=== PATIENT | male | born 1955 | race Caucasian/White ===

== ENCOUNTER → 2019-09-25 08:52 | Outpatient (CLI) | payer OTHER, SELFPAY ==
--- NOTE | 2019-09-25 08:56 | DI.RAD.S_ITS ---
PROCEDURE: FL BARIUM SWALLOW W SPEECH INDICATIONS: Change in swallowing mechanics, question about aspiration TECHNIQUE: Examination was conducted in conjunction with speech pathology per standard protocol. In the lateral projection, filming was performed of the patient swallowing. AP projection filming may also be performed with patient swallowing. COMPARISON: None. FINDINGS: Function: The oral preparatory phase appears normal, with proper containment. The subsequent oral propulsive phase, pharyngeal phase, and esophageal phase of swallowing also appear normal with all proffered substances. No laryngotracheal penetration or aspiration. Moderate amount of residue building at the level of the vallecula is seen. Morphology: No cricopharyngeal bar is identified. No cervical esophageal webs. No Zenker's diverticulum. No strictures. IMPRESSION: Moderate amount of residue at the level of vallecula. No aspiration or penetration is seen. Please refer to speech pathology notes. Dictated by: Lawson James M.D. on 09/25/2019 at 10:10 Approved by: Lawson James M.D. on 09/25/2019 at 10:11
--- NOTE | 2019-09-25 14:02 | ST.SWALLOW ---
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 He reports feeling as if things are going down the wrong way. He is being worked up for GERD . Subjective Observations Alert, oriented and followed direction appropriately. Patient Positioning Position View Lateral Imaging Lateral View Textures Administered Trials Presented Thin Liquid via Spoon,Thin Liquid via Cup,[place] Liquid via Spoon,[place] Liquid via Cup,Honey Liquid via Spoon, Dysphagia Blenderized Textures ,Regular Textures Oral Phase Source: MBSIMP (TM) (C) Bolus Specific Scoring Grid Lip Closure No Impairment (WNL) Tongue Control During Bolus Hold No Impairment (WNL) Bolus Prep/Mastication No Impairment (WNL) Bolus Transport/Lingual Motion No Impairment (WNL) Oral Residue Minimal Impairment Additional Oral Phase Observations Required multiple swallows to clear oral cavity of residue collection on oral structures. Pharyngeal Phase Source: MBSIMP (TM) (C) Bolus Specific Scoring Grid Delayed Initiation of Pharyngeal Swallow No Soft Palate Elevation No Impairment (WNL) Tongue Base Strength/Range of Motion No Impairment (WNL) Laryngeal Elevation Minimal Impairment Anterior Hyoid Movement No Impairment (WNL) Epiglottic Range of Motion No Impairment (WNL) Vallecular Residue Yes Laryngeal Vestibular Closure No Impairment (WNL) Pharyngeal Stripping Wave No Impairment (WNL) Upper Esophageal Sphincter Opening Minimal Impairment Residue in the Pyriform Sinuses Yes Additional Pharyngeal Phase Observations Epiglottis appears to only invert partially resulting in vallecular residue with all trials. Laryngeal vestibular closure is complete with no episodes of penetration or aspiration observed during the study. There is partial duration of the pharyngoesophageal segment opening resulting in pyriform sinus residue. Distension appeared complete with no obstruction of bolus flow. The collection of residue in the vallecula and pyriform sinuses as well as a trace amount of residue on the aryepiglottic folds with all consistencies triggered patient to take additional swallows which eventually cleared completely. A chin tuck was trialed but was not successful in eliminating pharyngeal residue. A/P View Clinical Impressions Findings Patient presents with mild pharyngeal dysphagia characterized by a collection of pharyngeal residue with all consistencies trialed. Patient was instructed to take small bites/sips when eating and drinking and implement additional dry swallows to clear residue. He verbalized understanding. No penetration or aspiration were observed and overall, patient's swallow appears functional for his age. Patient Appropriate for Therapy No Recommendations Diet Liquids Order Thin Diet Order Regular Medication Recommendation As Tolerated Additional Dietary Needs Single Sips Aspiration Precautions Recommended Precautions Small Bites/Sips,Double Swallow Treatment Plan Recommended Referrals Primary Care Physician Additional Recommended Referrals Consider barium swallow to assess esophageal function/ GERD Placement Recommendation After Discharge Home
== END ==
PROVIDERS: PCP Family Medicine; Visit Provider Family Medicine
DX: K21.0 Gastro-esophageal reflux disease with esophagitis (principal)
CPT/HCPCS: 74230; 92611

== ENCOUNTER 2019-11-03 09:04 | Outpatient (RCR) | payer OTHER, SELFPAY ==
--- NOTE | 2019-11-03 15:37 | ST.IPDYTX ---
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 He was alert, oriented and cooperative. Treatment Treatment Activities Patient was seen for follow-up from Modified Barium Swallow Study completed 09/25/19. Results of MBS indicate mild pharyngeal dysphagia characterized by a collection of pharyngeal residue with all consistencies. MBS video was reviewed with patient and verbal education was provided regarding normal swallow anatomy and physiology and presence of pharyngeal residue as well as potential impact including increased risk of aspiration due to residue coating aryepiglottic folds in between swallows. Patient was educated on use of the following compensatory strategies: small bites/sips, additional dry swallows to clear residue. Patient reports his symptoms of burning sensation in his chest have stopped since beginning Omeprazole as prescribed by his PCP. Written education was provided regarding GERD vs. LPR and dietary.lifestyle modifications for reducing GERD. Assessment Patient Response to Treatment Excellent Rehab Potential Excellent Assessment of Improvement Patient presents with a functional aging swallow and his symptoms which initially prompted referral for MBS were likely related to reflux vs. dysphagia. He verbalized understanding of aspiration precautions. I recommended he continue to follow-up with his PCP for management of his reflux. No further speech therapy recommended unless patient's condition worsens. Diet Recommendations Recommendations Continue Current Diet Liquids Order Thin Diet Order Regular Medication Recommendations As Tolerated Aspiration Precautions Recommended Precautions Upright at 90 Degrees,Frequent Rest Periods,Small Bites/Sips ,Double Swallow Treatment Plan Placement Recommendation after Discharge Home Appropriate for Continued Therapy No Therapy Recommendations Follow-up with PCP for ongoing management of GERD. Return for speech therapy if symptoms of dysphagia worsen or there is increased concern for aspiration.
== END 2020-03-17 09:16 ==
LOC: SP 09:04
PROVIDERS: PCP Family Medicine; Referring Provider Family Medicine; Visit Provider Family Medicine
DX: K21.0 Gastro-esophageal reflux disease with esophagitis (principal)
CPT/HCPCS: 92526

== ENCOUNTER 2019-11-27 08:49 | Day surgery (SDC) | payer OTHER, SELFPAY ==
[2019-11-27] VITALS (7 sets, daily range): BP systolic 129–152; BP diastolic 70–84; PULSE 61–70; RESP 13–18; TEMP 36.3–37.1; O2SAT 95–98; BMI 25.0
--- NOTE | 2019-11-27 | PATH_ITS ---
[facility] Accession Number: [id number] . 01 Material submitted: . PART A: duodenum bulb - DUODENAL BULB BIOPSY PART B: gastrointestinal site - GASTRIC MUCOSA BIOPSY PART C: esophagus - DISTAL ESOPHAGUS BIOPSY PART D: esophagus - ESOPHAGEAL BIOPSY . 02 Diagnosis: A. Duodenum, Bulb, Biopsy: Duodenal mucosa with no diagnostic abnormality. Negative for active inflammation, features of sprue, dysplasia, or malignancy. . B. Stomach, Biopsy: Antral mucosa with mild chronic gastritis. Negative for Helicobacter by immunohistochemistry. Negative for intestinal metaplasia. Negative for dysplasia and malignancy. . C. Distal Esophagus, Biopsy: Squamocolumnar junctional mucosa with specialized intestinal metaplasia, consistent with Nichols's esophagus. Negative for dysplasia and malignancy. . D. Esophagus, Biopsy: Squamous epithelium with no diagnostic abnormality. Intraepithelial eosinophils are not increased. Negative for dysplasia and malignancy. [facility] 12/01/2019 1523 Local . 02 Electronically signed: . Miryam Jain MD, Pathologist NPI- [id number] . 01 Gross description: . Part A: DUODENAL BULB BIOPSY: Received in formalin is 1 fragment(s) of toscano, soft tissue measuring 0.3 x 0.2 x 0.1 cm submitted entirely in 1 cassette(s) Part B: GASTRIC MUCOSA BIOPSY: Received in formalin is 1 fragment(s) of toscano, soft tissue measuring 0.3 x 0.2 x 0.1 cm submitted entirely in 1 cassette(s) Part C: DISTAL ESOPHAGUS BIOPSY: Received in formalin are 2 fragment(s) of toscano, soft tissue measuring 0.2 x 0.2 x 0.1 cm to 0.2 x 0.1 x 0.1 cm submitted entirely in 1 cassette(s) Part D: ESOPHAGEAL BIOPSY: Received in formalin is 1 fragment(s) of toscano, soft tissue measuring 0.3 x 0.3 x 0.1 cm submitted entirely in 1 cassette(s) /Q 11/27/2019 2354 Local . 02 Microscopic: . B. An immunohistochemical stain was performed to evaluate for Helicobacter organisms and is negative. The control stain showed appropriate reactivity. . * This test was developed and its performance characteristics determined by [facility]. It has not been cleared or approved by the U.S. Food and Drug Administration. The FDA has determined that such clearance or approval is not necessary. This test is used for clinical purposes. It should not be regarded as investigational or for research. . 02 Pathologist provided ICD-10: K21.9 . 02 CPT . 552167, 454865, 681492, 425316, T96127 Performed at: 01 [facility] [address] [id number] MD Niall Hillman MD Phone: [phone] Performed at: 02 [facility] [address] [place] [id number] MD Miryam Jain MD Phone: [phone]
[2019-11-27] MEDS: SODIUM CHLORIDE 0.9% 1,000 ML 200 ML IV (09:05)
--- NOTE | 2019-11-27 09:35 | PM.OP.ENDO ---
Operative Date/Time/Diagnoses Date of procedure: 11/27/19 Time of procedure: 09:35 Pre-op diagnosis: Acid reflux symptoms Post-op diagnosis: other (7 cm of Nichols's esophagus, endoscopic gastritis with stigmata of recent bleeding, mild endoscopic duodenitis) Procedure & Clinicians Study performed: Esophagogastroduodenoscopy with cold forceps biopsies of duodenal bulb, gastric mucosa, distal esophagus, mid esophagus Same procedure as scheduled: Yes Indications: Acid reflux symptoms Surgeon: Martha Ashford Procedure Notes SCOAP/Timeout: Performed Procedure in detail: The patient was brought to the room and placed in left lateral decubitus position with all bony prominences padded. A time-out was performed and then the patient was given procedural sedation starting with [4] mg of Versed and [100] mcg of fentanyl. A total of 8 mg of Versed and 100 micro g of fentanyl were given for the entire procedure. Vitals were monitored throughout the procedure and remained stable. Once adequately sedated the procedure was begun. A bite block was placed in the patient's mouth to protect his lips, teeth, and tongue. The gastroscope was then passed through the bite block, across the tongue and down into the esophagus without incident. A tubular view of the esophagus was maintained as I advanced the scope down the esophagus into the stomach. I then advanced through the pylorus and into the duodenum. I then flexed the scope into the 2nd part of the duodenum. The duodenum appeared normal, with a small amount of bile present. The duodenal bulb appeared slightly inflamed. This was biopsied. Above retracted back into the stomach, where I saw multiple shallow healing ulcerations, and some erythematous mucosa, consistent with erosive gastritis. Biopsies were taken of the gastric mucosa. I then retroflexed and looked up at the hiatus. There was a Hill grade 2 hiatal hernia, which was very small. I then straightened the scope retracted back into the esophagus where I saw a long tongue of salmon-colored mucosa extending up into the distal esophagus. This was about 7 cm in length. The Z-line had several additional breaks in it, but no other long tongues of salmon mucosa. Biopsies were taken of the distal esophagus. I then retracted the scope further out into the midesophagus, and took biopsies there. The scope was then withdrawn from the patient. He tolerated the procedure well. He was transferred to the PACU in stable condition. Sedation minutes: 15 Findings: Nichols's esophagus (7 cm), gastritis and hiatal hernia (Small, Hill grade 2) Specimen(s): other (Cold forceps biopsies of duodenal bulb, gastric mucosa, distal esophagus, mid esophagus) Complications: none Impression: Nichols's esophagus, erosive gastritis, low-grade duodenitis Post-procedure Recommendations: No ASA/NSAIDS, EGD in 1 year (Will depend on biopsy results) and Other recommendation (Use double-dose omeprazole, and anti-reflux diet. Will likely need surveillance EGD for Nichols's esophagus in 1 year, depending on biopsy results.) Plan for aftercare: Increase to double-dose PPI, use low acid/anti-reflux diet. Schedule for follow-up EGD in 1 year Will contact patient with biopsy results Disposition: PACU
--- NOTE | 2019-11-27 09:35 | PM.PREOP ---
Pre-operative Note Interval Note History & Physical reviewed/Exam performed by Physician: Yes Changes to H&P: No ASA Class (for procedural sedation): II
[2019-11-27] MEDS: MIDAZOLAM 5 MG/5 ML VIAL IV (09:37)
[2019-11-27] MEDS: fentaNYL 250 MCG/5 ML INJ IV (09:38)
[2019-11-27] MEDS: LIDOCAINE 4% SOLN 50 ML 20 ML TOP (09:39)
[2019-11-27] MEDS: MIDAZOLAM 2 MG/2 ML VIAL IV ×2 (09:46→09:54)
--- NOTE | 2019-11-27 10:44 | SUR.PHASEII ---
1035 states that he feel ready to go, awake, oriented, denies lightheadedness. Tolerating water well. 1040 Ambulated to the bathroom, stable on feet. Void qs.
== END 2019-11-27 10:45 | disposition home or self-care (01) ==
PROVIDERS: PCP Family Medicine; Referring Provider Surgery; Visit Provider Surgery
PROC: 0DJ08ZZ Inspection of Upper Intestinal Tract, Via Natural or Artificial Opening Endoscopic (ICD-10-PCS; CPT 43235; principal; 2019-11-27 10:00)
DX: K29.50 Unspecified chronic gastritis without bleeding (principal); K21.9 Gastro-esophageal reflux disease without esophagitis; K22.70 Barrett's esophagus without dysplasia; K29.80 Duodenitis without bleeding; K44.9 Diaphragmatic hernia without obstruction or gangrene
CPT/HCPCS: 43239; 99152; J2250; J3010

== ENCOUNTER → 2020-05-20 08:17 | Outpatient (CLI) | payer OTHER, SELFPAY ==
[2020-05-20 08:45] LABS: Add Manual Diff / Slide Review NO; Basophils Absolute Auto 100 /uL (0-100); Basophils Percent Auto 1.3 % (0-2); Eosinophils Absolute Auto 200 /uL (0-450); Hematocrit 45.5 % (41-53); Hemoglobin 15.5 g/dL (13.5-17.5); Lymphocytes Absolute Auto 2500 /uL (1100-4500); Lymphocytes Percent Auto 31.2 % (25-40); Mean Corpuscular Hemoglobin 31.8 PG (26-34); Mean Corpuscular Volume 93.5 fL (80-100); Monocytes Absolute Auto 800 /uL (0-900); Neutrophils Absolute Auto 4300 /uL (1500-7000); Neutrophils Percent Auto 54.5 % (50-75); Platelet Count 241 X10^3/uL (150-400); Red Blood Cell Count 4.87 X10^6/uL (4.5-5.9); Red Cell Distribution Width 13.6 % (11.6-14.8)
[2020-05-20 09:04] LABS: Alanine Aminotransferase 25 IU/L (<50); Albumin 4.5 g/dL (3.5-5.0); Albumin Globulin Ratio 1.6 (1.0-2.8); Alkaline Phosphatase 73 U/L (38-126); Aspartate Aminotransferase 39 IU/L (17-59); BUN Creatinine Ratio 11.1 (6-22); Blood Urea Nitrogen 8 mg/dL (9-20); Calcium 9.8 mg/dL (8.4-10.2); Carbon Dioxide 25 mmol/L (22-32); Chloride 100 mmol/L (98-107); Cholesterol 179 mg/dL (140-199); Estimated Glomerular Filt Rate > 60.0 mL/min (>60); Globulin 2.9 g/dL (1.7-4.1); Glucose 74 mg/dL (80-110); HDL Cholesterol 64 mg/dL (40-60); HEMOLYSIS < 15 (0-50); LDL Cholesterol Calculated 97 mg/dL (<100); Potassium 4.6 mmol/L (3.4-5.1); Sodium 135 mmol/L (137-145); Total Protein 7.4 g/dL (6.3-8.2); Triglycerides 88 mg/dL (35-150)
[2020-05-20 09:32] LABS: Prostate Specific Antigen Scrn 2.61 ng/mL (0.1-4.0)
== END ==
PROVIDERS: PCP Family Medicine; Referring Provider Family Medicine; Visit Provider Family Medicine
DX: Z00.00 Encounter for general adult medical examination without abnormal findings (principal); Z12.5 Encounter for screening for malignant neoplasm of prostate; Z13.1 Encounter for screening for diabetes mellitus; Z13.220 Encounter for screening for lipoid disorders; Z13.228 Encounter for screening for other metabolic disorders
CPT/HCPCS: 36415; 80053; 80061; 85025; G0103

== ENCOUNTER → 2020-06-17 09:13 | Outpatient (CLI) | payer OTHER, SELFPAY ==
[2020-06-20 07:40] LABS: Fecal Immunochemical Test Negative (Negative)
== END ==
PROVIDERS: PCP Family Medicine; Referring Provider Family Medicine; Visit Provider Family Medicine
DX: Z12.11 Encounter for screening for malignant neoplasm of colon (principal)
CPT/HCPCS: 82274

== ENCOUNTER 2021-12-07 13:35 | Emergency (ER) | payer MEDICARE, SELFPAY ==
--- NOTE | 2021-12-07 13:44 | DI.RAD.S_ITS ---
PROCEDURE: XR ELBOW RT MIN 3V INDICATIONS: swelling, pain, tingling TECHNIQUE: 3 views of the elbow were acquired. COMPARISON: None. FINDINGS: Bones: No acute fractures or dislocations. No suspicious bony lesions. Soft tissues: No elbow joint effusion. No suspicious soft tissue calcifications. IMPRESSION: No acute osseous abnormality. If clinical suspicion and/or symptoms persist, additional imaging with repeat plain films, or advanced imaging (e.g. CT, MRI) may be helpful for further assessment. Dictated by: Eddie Orona M.D. on 12/07/2021 at 13:22 Approved by: Eddie Orona M.D. on 12/07/2021 at 13:23
[2021-12-07 13:45] VITALS: BP 181/85; PULSE 77; RESP 16; TEMP 36.7; O2SAT 98; BMI 25.0
--- NOTE | 2021-12-07 14:45 | ED.UPPEXIN ---
HPI - Extremity Injury (Upper) <JEANNETTE De La Paz - Last Filed: 12/07/21 15:23> General Chief Complaint: Extremity Injury, Upper Stated Complaint: Potential dislocated elbow Time Seen by Provider: 12/07/21 14:24 Source: patient Mode of arrival: Ambulatory History of Present Illness HPI narrative: 66-year-old male smoker presents to the emergency department complaining of right elbow pain for approximately 1 week and worst pain which started last night with tenderness to palpation and limited range of motion. Patient denies any repetitive motion hobbies or overuse recently. Patient states he is retired. He denies any fever, skin infection, he states he has a history of shingles but this was on his back last year. Patient denies any known injury, states that it feels like it is swollen. He is unable to fully extend his right elbow. He denies any redness but endorses tenderness to touch, and mild swelling. Related Data Home Medications Medication Instructions Recorded Confirmed aluminum-mag hydroxide-simethicone 5 ml PO ONCE 10/29/19 08/17/20 200 mg-200 mg-20 mg/5 mL oral susp Previous Rx's Medication Instructions Recorded omeprazole 20 mg capsule,delayed 20 mg PO BID #60 cap 11/27/19 release cephalexin 500 mg capsule 500 mg PO QID #28 cap 08/17/20 hydrocodone 5 mg-acetaminophen 325 1 tab PO BID PRN #10 tab 12/07/21 mg tablet meloxicam 7.5 mg tablet 7.5 mg PO DAILY PRN #14 tab 12/07/21 prednisone 50 mg tablet 50 mg PO DAILY #5 tab 12/07/21 tramadol 50 mg tablet 50 mg PO BID PRN #10 tab 12/07/21 Allergies Allergy/AdvReac Type Severity Reaction Status Date / Time No Known Drug Allergies Allergy Verified 08/17/20 14:45 Review of Systems <JEANNETTE De La Paz - Last Filed: 12/07/21 15:23> Review of Systems Narrative: General: denies fever, chills, malaise, sweats, fatigue Head/Neck: denies headache, neck pain, dizziness Eyes: denies visual changes, eye pain Cardio: denies chest pain, palpitations, edema Respiratory: denies dyspnea, cough, orthopnea GI: denies abdominal pain, nausea, vomiting, or diarrhea : denies dysuria, hematuria, urinary retention, frequency or incontinence MSK: Endorses right elbow pain with mild swelling, denies any weakness Skin: denies rash, itching, skin lesions or other Neuro: denies numbness, tingling Patient History <JEANNETTE De La Paz - Last Filed: 12/07/21 15:23> Medical History Nichols's esophagus Chronic neck pain Hearing loss (~1999) Reflux esophagitis Segmental and somatic dysfunction of abdomen and other regions Segmental and somatic dysfunction of cervical region Shoulder pain (~2002) Skin abscess Somatic dysfunction of rib cage region Vision disorder Surgical History Anesthesia History of bladder surgery (~2018) History of knee surgery (~1993) History of open heart surgery (~1967) History of shoulder surgery (~2003) Social History household members: other Smoking Status: Current every day smoker alcohol intake: current Smoking Status: Current every day smoker tobacco type: cigarettes alcohol intake frequency: a few times a week Substance Use Type: does not use and other Exam <JEANNETTE De La Paz - Last Filed: 12/07/21 15:23> Narrative Exam Narrative: Independently reviewed vitals signs and nursing notes. General: cooperative, comfortable, in no acute distress, well developed and well groomed Head: atraumatic, symmetrical facial expressions Neck: supple, atraumatic, without lymphadenopathy. Eyes: pupils equal round and reactive, EOMI, conjunctiva normal Nose: nares patent, no rhinorrhea Mouth/Throat: uvula midline, moist mucus membranes Cardiovascular: regular rate and rhythm, no peripheral edema, warm extremities Respiratory: normal effort, able to speak in complete sentences, no audible wheezing, stridor, or rales. No retractions or tachypnea. MSK: moves all extremities, ambulatory w/steady gait, neurovascularly intact, no weakness, right elbow with mild edema, no erythema, no ecchymosis, tenderness over Skin: brisk capillary refill, no rash, no erythema Neuro: normal speech and cognition, A&O x3, normal tone Psych: mental status is grossly normal, congruent mood, normal affect, pleasant and cooperative Initial Vital Signs Initial Vital Signs: Vital Signs Temperature 98.0 F 12/07/21 13:45 Pulse Rate 77 12/07/21 13:45 Respiratory Rate 16 12/07/21 13:45 Blood Pressure 181/85 H 12/07/21 13:45 Pulse Oximetry 98 12/07/21 13:45 <Gianna Beltran DO - Last Filed: 12/07/21 19:18> Initial Vital Signs Initial Vital Signs: Vital Signs Temperature 98.0 F 12/07/21 13:45 Pulse Rate 77 12/07/21 13:45 Respiratory Rate 16 12/07/21 13:45 Blood Pressure 181/85 H 12/07/21 13:45 Pulse Oximetry 98 12/07/21 13:45 Course <JEANNETTE De La Paz - Last Filed: 12/07/21 15:23> Orders Ordered: ED Orders 12/07/21 13:44 XR elbow RT min 3V Stat Discontinued Medications Hydrocodone Bitart/Acetaminophen (Hydrocodone/Acet 5/325 Tablet) 1 tab PO NOW ONE Stop: 12/07/21 14:41 Last Admin: 12/07/21 15:18 Dose: 1 tab Documented by: CAROL Ketorolac Tromethamine (Ketorolac 30 Mg/Ml Vial) 15 mg IM NOW ONE Stop: 12/07/21 14:40 Last Admin: 12/07/21 15:18 Dose: 15 mg Documented by: CAROL Lidocaine (Lidocaine Patch 1 Each Adh..Patch) 1 each TOP NOW ONE Stop: 12/07/21 14:40 Last Admin: 12/07/21 15:18 Dose: 1 each Documented by: CAROL Pantoprazole Sodium (Pantoprazole Dr 20 Mg Tablet) 20 mg PO NOW ONE Stop: 12/07/21 14:40 Last Admin: 12/07/21 15:18 Dose: 20 mg Documented by: CAROL Prednisone (Prednisone 20 Mg Tablet) 50 mg PO NOW ONE Stop: 12/07/21 14:40 Last Admin: 12/07/21 15:18 Dose: 50 mg Documented by: CAROL Vital Signs Vital signs: Vital Signs - 8 hr 12/07/21 13:45 12/07/21 15:26 Temperature 98.0 F Pulse Rate 77 70 Respiratory Rate 16 16 Blood Pressure 181/85 H 165/75 H Pulse Oximetry 98 99 <Gianna Beltran DO - Last Filed: 12/07/21 19:18> Orders Ordered: ED Orders 12/07/21 13:44 XR elbow RT min 3V Stat Discontinued Medications Hydrocodone Bitart/Acetaminophen (Hydrocodone/Acet 5/325 Tablet) 1 tab PO NOW ONE Stop: 12/07/21 14:41 Last Admin: 12/07/21 15:18 Dose: 1 tab Documented by: CAROL Ketorolac Tromethamine (Ketorolac 30 Mg/Ml Vial) 15 mg IM NOW ONE Stop: 12/07/21 14:40 Last Admin: 12/07/21 15:18 Dose: 15 mg Documented by: CAROL Lidocaine (Lidocaine Patch 1 Each Adh..Patch) 1 each TOP NOW ONE Stop: 12/07/21 14:40 Last Admin: 12/07/21 15:18 Dose: 1 each Documented by: CAROL Pantoprazole Sodium (Pantoprazole Dr 20 Mg Tablet) 20 mg PO NOW ONE Stop: 12/07/21 14:40 Last Admin: 12/07/21 15:18 Dose: 20 mg Documented by: CAROL Prednisone (Prednisone 20 Mg Tablet) 50 mg PO NOW ONE Stop: 12/07/21 14:40 Last Admin: 12/07/21 15:18 Dose: 50 mg Documented by: CAROL Vital Signs Vital signs: Vital Signs - 8 hr 12/07/21 13:45 12/07/21 15:26 Temperature 98.0 F Pulse Rate 77 70 Respiratory Rate 16 16 Blood Pressure 181/85 H 165/75 H Pulse Oximetry 98 99 MDM - Extremity Injury (Upper) <JEANNETTE De La Paz - Last Filed: 12/07/21 15:23> Imaging Data Extremity x-ray #1: Radiologist's Impression: PROCEDURE:? XR ELBOW RT MIN 3V ? INDICATIONS:? swelling, pain, tingling ? TECHNIQUE:? 3 views of the elbow were acquired.? ? COMPARISON:? None. ? FINDINGS:? ? Bones:? No acute fractures or dislocations.? No suspicious bony lesions.? ? Soft tissues:? No elbow joint effusion.? No suspicious soft tissue calcifications.? ? IMPRESSION:? No acute osseous abnormality.? If clinical suspicion and/or symptoms persist, additional imaging with repeat plain films, or advanced imaging (e.g. CT, MRI) may be helpful for further assessment. ? ? Dictated by: Eddie Orona M.D. on 12/07/2021 at 13:22 ? ? Approved by: Eddie Orona M.D. on 12/07/2021 at 13:23 ? MDM Narrative Medical decision making narrative: 66-year-old male presents to the emergency department complaining of right elbow pain which started he thinks a week ago when he was sleeping. He states it worsened last night, he is unable to fully extend his right elbow, it has tenderness over the lateral epicondyle. Patient does not have any history of gout, he is not on any blood thinners, he denies any known injury, he does not have any signs of infection including warmth, erythema, fluctuance, or rash. This is most likely tendinitis. Opted to treat patient with prednisone, meloxicam, tramadol, and hydrocodone as needed for his pain. He was given Toradol, hydrocodone and prednisone with Pepcid in the emergency department. Patient was also given a lidocaine patch. Encouraged light sling immobilization at a position of comfort. Ice, rest, follow-up with orthopedics. Patient understands to return to the emergency department for any worsening, fever, erythema, swelling, or any worsening range of motion. Differential diagnosis include lateral epicondylitis, tendinopathy, arthritis, flexor tenosynovitis, bursitis, gout, cellulitis, septic joint. Patient is appropriate and amenable to discharge home. Vital signs are stable on repeat examination is unremarkable. Patient has been informed of results. Patient has been given strict return to ER precautions for any new or worsening symptoms. Patient understands to follow up closely with outpatient providers as instructed. Patient understands plan and agrees to discharge home. All questions and concerns answered at this time. Discharge Plan Departure Patient Disposition: Home Clinical Impression: Elbow tendonitis Instructions: DI for Tendinitis, DI for Lateral Epicondylitis (Tennis Elbow) Activity Restrictions/Additional Instructions: *You have been diagnosed with tendinitis of the right elbow. Please take these medications as prescribed, I have sent then to your pharmacy at [place]. If you develop any worsening redness, significant pain, swelling, streaking up your arm or reduced mobility please return to the emergency department for another evaluation. Please use ice, hydrocodone and tramadol as needed for breakthrough pain, you can use a lidocaine patch or gel if that is helpful, and please take your omeprazole daily for the next 1 week to help protect her stomach on his medications. If this starts healing and is better in a week, please follow-up with your primary care provider. If there is any worsening cough, or if it is still a bother, please follow-up with orthopedics. *What to do: *Please continue to take your regular medications as directed. [x ] New medication prescriptions sent to your pharmacy: [ [facility]] [ ] New medication written as a paper prescription [ ] No new medications given *Please follow up with your primary care provider in 2-3 days, call for an appointment. Let them know you were seen in the Emergency Department and that we asked that you be seen for follow-up. We will electronically transmit a record of today's note if your PCP is in our system *If you do not have a primary care provider please contact [phone] to establish care with one of [facility] primary care providers. *Return to Emergency Department if you should have any new, worsening or concerning symptoms, such as [fever greater than 101F, chills, worsening pain, persistent vomiting or other bothersome symptoms] Prescriptions: New meloxicam 7.5 mg tablet 7.5 mg PO DAILY PRN (Reason: pain) Qty: 14 0RF Rx Instructions: please take with food prednisone 50 mg tablet 50 mg PO DAILY Qty: 5 0RF tramadol 50 mg tablet 50 mg PO BID PRN (Reason: pain) Qty: 10 0RF hydrocodone-acetaminophen 5-325 mg tablet 1 tab PO BID PRN (Reason: pain) Qty: 10 0RF No Action cephalexin 500 mg capsule 500 mg PO QID Qty: 28 0RF alum-mag hydroxide-simeth 200-200-20 mg/5 mL suspension 5 ml PO ONCE 0RF omeprazole 20 mg capsule,delayed release(DR/EC) 20 mg PO BID Qty: 60 6RF Referrals: [facility] [Provider Group] - 5-7 days Atul Andujar DO [Primary Care Provider] - <Gianna Beltran DO - Last Filed: 12/07/21 19:18> Cosign ED Attending Cosignature Attestation: I was immediately available in the department for consultation. Documentation has been reviewed.
[2021-12-07] MEDS: PANTOPRAZOLE DR 20 MG TABLET PO (15:18)
[2021-12-07] MEDS: LIDOCAINE PATCH 1 EACH ADH..PATCH TOP (15:18)
[2021-12-07] MEDS: KETOROLAC 30 MG/ML VIAL 15 MG IM (15:18)
[2021-12-07] MEDS: predniSONE 20 MG TABLET 50 MG PO (15:18)
[2021-12-07] MEDS: HYDROCODONE/ACET 5/325 TABLET 1 TAB PO (15:18)
[2021-12-07 15:26] VITALS: BP 165/75; PULSE 70; RESP 16; O2SAT 99
== END 2021-12-07 15:26 | disposition home or self-care (01) ==
PROVIDERS: Emergency Provider Nurse Practitioner Critical Care Medicine; PCP Family Medicine
DX: M77.8 Other enthesopathies, not elsewhere classified (principal); M25.521 Pain in right elbow
CPT/HCPCS: 73080; 99283; 99284; J1885

== ENCOUNTER → 2021-12-20 13:02 | Outpatient (CLI) | payer MEDICARE, SELFPAY ==
--- NOTE | 2021-12-20 13:03 | DI.CT.S_ITS ---
PROCEDURE: CT CHEST WO CON INDICATIONS: Lung cancer screening TECHNIQUE: Noncontrast 2.0-2.5 mm thick sections acquired from the pulmonary apices to the posterior costophrenic angles. 7 mm thick axial MIP, and 5 mm coronal and sagittal reformats were then acquired. A low radiation dose technique was utilized. COMPARISON: [facility], US, US RENAL COMPLETE, 11/03/2018, 12:46. FINDINGS: Image quality: Diagnostic, given the low radiation dose technique. Lungs and pleura: Faint reticulonodular densities are seen in the right upper lobe, which may reflect a post infectious or inflammatory process. Centrilobular emphysematous change. No consolidation, pleural effusion, or pneumothorax. Left upper lobe calcified granuloma in the left upper lobe. Mediastinum: Heart size is normal. No pericardial effusion. Dense calcification of the LAD. No mediastinal adenopathy by size criteria. Thoracic aorta is normal in size. Enlargement of the left main pulmonary artery, measuring up to 3.7 cm, concerning for pulmonary hypertension. Esophagus is normal in caliber. No hiatal hernia. Bones and chest wall: No suspicious bony lesions. No vertebral body compression fractures. Multifocal degenerative change. No axillary or supraclavicular adenopathy by size criteria. Abdomen: Prominence of the left kidney, which may reflect compensatory hypertrophy. IMPRESSION: Faint reticulonodular densities in the right upper lobe, which may reflect a post infectious or inflammatory process. LUNG-RADS 1S; continue annual screening in 12 months. Dictated by: Koffi Huizar M.D. on 12/20/2021 at 14:16 Approved by: Kfofi Huizar M.D. on 12/20/2021 at 14:27
== END ==
PROVIDERS: PCP Family Medicine; Referring Provider Family Medicine; Visit Provider Family Medicine
DX: J44.9 Chronic obstructive pulmonary disease, unspecified (principal); Z12.2 Encounter for screening for malignant neoplasm of respiratory organs
CPT/HCPCS: 71250

== ENCOUNTER → 2022-06-27 08:34 | Outpatient (CLI) | payer MEDICARE, SELFPAY ==
--- NOTE | 2022-06-27 08:36 | DI.RAD.S_ITS ---
PROCEDURE: XR KNEE RT 3V INDICATIONS: right knee pain, fell on kneecap TECHNIQUE: 3 views of the knee were acquired. COMPARISON: None. FINDINGS: Bones: No fractures or dislocations. Bjgq-ej-qahrrzwu tricompartmental osteoarthritis is seen more prominent in lateral femoral tibial compartment. No patellar subluxation. No suspicious bony lesions. Soft tissues: Moderate suprapatellar joint effusion is seen. Chondrocalcinosis in medial and lateral femoral tibial compartments are seen. IMPRESSION: No acute right knee fracture or dislocation. Moderate joint effusion. Rrls-os-[id number] tricompartmental osteoarthritis and chondrocalcinosis as above. Dictated by: Lawson James M.D. on 06/27/2022 at 10:16 Approved by: Lawson James M.D. on 06/27/2022 at 10:36
== END ==
PROVIDERS: PCP Family Medicine; Referring Provider Internal Medicine; Visit Provider Internal Medicine
DX: M17.11 Unilateral primary osteoarthritis, right knee (principal); M11.261 Other chondrocalcinosis, right knee; M25.561 Pain in right knee; M25.461 Effusion, right knee
CPT/HCPCS: 73562

== ENCOUNTER → 2023-06-14 09:20 | Outpatient (CLI) | payer MEDICARE, SELFPAY ==
[2023-06-14 10:19] LABS: Add Manual Diff / Slide Review NO; Basophils Absolute Auto 0 /uL (0-100); Basophils Percent Auto 0.3 % (0-2); Eosinophils Absolute Auto 200 /uL (0-450); Eosinophils Percent Auto 2.9 % (2-4); Hemoglobin 16.3 g/dL (13.5-17.5); Lymphocytes Absolute Auto 2300 /uL (1100-4500); Lymphocytes Percent Auto 32.5 % (25-40); Mean Corpuscular HGB Conc 34.6 % (30-36); Mean Corpuscular Hemoglobin 32.7 PG (26-34); Mean Corpuscular Volume 94.6 fL (80-100); Monocytes Absolute Auto 900 /uL (0-900); Monocytes Percent Auto 12.6 % (3-14); Neutrophils Absolute Auto 3600 /uL (1500-7000); Neutrophils Percent Auto 51.7 % (50-75); Platelet Count 214 X10^3/uL (150-400); Red Blood Cell Count 4.97 X10^6/uL (4.5-5.9); Red Cell Distribution Width 14.4 % (11.6-14.8)
[2023-06-14 10:23] LABS: Appearance Urine UA CLEAR; Bilirubin Urine UA NEGATIVE (NEGATIVE); Color Urine UA YELLOW; Glucose Urine UA NEGATIVE (Negative); Ketones Urine UA NEGATIVE (NEGATIVE); Leukocyte Esterase Urine UA NEGATIVE (NEGATIVE); Nitrite Urine UA NEGATIVE (Negative); Occult Blood Urine UA NEGATIVE (Negative); Protein Urine UA NEGATIVE (Negative); pH Urine UA 6.5 (4.5-8.0)
[2023-06-14 10:48] LABS: Bacteria Urine None Seen; Culture Indicated Urine Cult Not Indicated; RBC Urine 0-1/HPF (0-5/HPF); Squamous Epithelial Cell Urine 5-10 /HPF (0-5/HPF); WBC Urine 0-1/HPF (0-5/HPF)
[2023-06-14 10:52] LABS: BUN Creatinine Ratio 11.1 (6-22); Blood Urea Nitrogen 8 mg/dL (9-20); Calcium 9.7 mg/dL (8.4-10.2); Carbon Dioxide 28 mmol/L (22-32); Chloride 99 mmol/L (98-107); Estimated Glomerular Filt Rate > 60 mL/min (>60); Glucose 116 mg/dL (80-110); HEMOLYSIS < 15 (0-50); Potassium 4.2 mmol/L (3.4-5.1); Sodium 136 mmol/L (137-145)
== END ==
PROVIDERS: PCP Family Medicine; Referring Provider Orthopaedic Surgery; Visit Provider Orthopaedic Surgery
DX: Z01.818 Encounter for other preprocedural examination (principal); R73.9 Hyperglycemia, unspecified; Z01.812 Encounter for preprocedural laboratory examination; N39.0 Urinary tract infection, site not specified
CPT/HCPCS: 36415; 80048; 81001; 83036; 85025; 93005

== ENCOUNTER → 2023-07-29 09:12 | Outpatient (CLI) | payer OTHER, MEDICAID, SELFPAY ==
[2023-07-29 10:28] LABS: Prostate Specific Antigen Scrn 4.66 ng/mL (0.1-4.0)
== END ==
PROVIDERS: PCP Family Medicine; Referring Provider Family Medicine; Visit Provider Family Medicine
DX: Z12.5 Encounter for screening for malignant neoplasm of prostate (principal)
CPT/HCPCS: 36415; G0103

== ENCOUNTER → 2023-08-06 10:19 | Outpatient (CLI) | payer MEDICARE, MEDICAID, SELFPAY ==
[2023-08-07 16:00] LABS: Fecal Immunochemical Test Negative (Negative)
== END ==
PROVIDERS: PCP Family Medicine; Referring Provider Family Medicine; Visit Provider Family Medicine
DX: Z12.11 Encounter for screening for malignant neoplasm of colon (principal)
CPT/HCPCS: 82274

== ENCOUNTER → 2023-11-15 10:02 | Outpatient (CLI) | payer MEDICARE, MEDICAID, SELFPAY ==
[2023-11-15 12:03] LABS: Prostate Specific Antigen 4.91 ng/mL (0.10-4.00)
== END ==
PROVIDERS: PCP Family Medicine; Referring Provider Family Medicine; Visit Provider Family Medicine
DX: R97.20 Elevated prostate specific antigen [PSA] (principal)
CPT/HCPCS: 36415; 84153

== ENCOUNTER → 2023-12-10 14:40 | Outpatient (CLI) | payer MEDICARE, MEDICAID, SELFPAY | PROVIDERS: PCP Family Medicine; Visit Provider Urology | DX: R97.20 Elevated prostate specific antigen [PSA] (principal); Z72.0 Tobacco use; Z98.890 Other specified postprocedural states; Z80.42 Family history of malignant neoplasm of prostate | CPT/HCPCS: 81002; 87086; 99214 ==

== ENCOUNTER → 2023-12-23 08:44 | Outpatient (CLI) | payer MEDICARE, SELFPAY ==
--- NOTE | 2023-12-23 09:11 | DI.MRI.S_ITS ---
PROCEDURE: MR PELVIC PROSTATE PROTOCOL INDICATIONS: Elevated and rising PSA TECHNIQUE: Coronal HASTE, axial T1 FSE with fat saturation, 3-plane nonbreath-hold T2 FSE. After the administration of contrast, dynamic axial, delayed axial and coronal VIBE or 2-D FLASH with fat saturation through the pelvis. Diffusion weighted imaging and ADC was performed. COMPARISON: None. FINDINGS: Image quality: Diffusion weighted and dynamic contrast enhanced images are diagnostic. Prostate: Gland size is 4.1 x 3.3 x 2.9 cm; ellipsoid gland volume is 20 mL. Numerous BPH nodules. No significant intrinsic T1 hyperintense foci to suggest hemorrhage. No significant areas of ADC hypointensity in the peripheral zone. No suspicious foci of the T2 hypointense signal in the transitional zone. No PI-RADS 4 or 5 observations. Genitourinary system: Bladder wall thickness is normal. Distal ureters are non distended. Bowel and peritoneum: No pathologic free pelvic fluid. Inferior colon and small bowel loops are normal in caliber. A few colonic diverticuli. Nodes and vessels: No pelvic or inguinal adenopathy by size criteria. Iliac vessels are normal in caliber. Soft tissues: No inguinal hernias. Bones: Marrow demonstrates normal overall signal, without lesions to suggest metastases. IMPRESSION: 1. Prominent prostate gland. Multiple BPH nodules. 2. No PI-RADS 4 or 5 observations. 3. No enlarged lymph nodes. Dictated by: Bhanu Christopher M.D. on 12/23/2023 at 10:54 Approved by: Bhanu Christopher M.D. on 12/23/2023 at 11:06
== END ==
LOC: MRI 08:44
PROVIDERS: PCP Family Medicine; Referring Provider Urology; Visit Provider Urology
DX: N40.2 Nodular prostate without lower urinary tract symptoms (principal); R97.20 Elevated prostate specific antigen [PSA]
CPT/HCPCS: 72197; A9579

== ENCOUNTER → 2024-03-24 11:00 | Outpatient (CLI) | payer MEDICARE, SELFPAY ==
[2024-03-26 07:36] LABS: PSA Free % 6.1 % (.); PSA, Total 5.1 ng/mL (0.0-4.0)
== END ==
PROVIDERS: PCP Family Medicine; Referring Provider Urology; Visit Provider Urology
DX: R97.20 Elevated prostate specific antigen [PSA] (principal); Z80.42 Family history of malignant neoplasm of prostate
CPT/HCPCS: 36415; 84153; 84154

== ENCOUNTER → 2024-06-11 10:50 | Outpatient (CLI) | payer MEDICARE, SELFPAY ==
[2024-06-12 07:11] LABS: PSA Free % 7.2 % (.); PSA, Total 4.3 ng/mL (0.0-4.0)
== END ==
PROVIDERS: PCP Family Medicine; Referring Provider Urology; Visit Provider Urology
DX: R97.20 Elevated prostate specific antigen [PSA] (principal); Z80.42 Family history of malignant neoplasm of prostate
CPT/HCPCS: 36415; 84153; 84154

== ENCOUNTER → 2024-08-19 16:24 | Outpatient (CLI) | payer MEDICARE, SELFPAY ==
[2024-08-19 20:03] LABS: Influenza A - CEPHEID Flu A NEGATIVE (NEGATIVE); Influenza B - CEPHEID Flu B NEGATIVE (NEGATIVE); Respiratory Syncytial Virus Negative (Negative)
[2024-08-19 20:19] LABS: COVID-19 CEPHEID 4-PLEX PCR Negative (Negative)
== END ==
PROVIDERS: PCP Family Medicine; Visit Provider Physician Assistant
DX: R05.1 Acute cough (principal)
CPT/HCPCS: 0241U

== ENCOUNTER → 2024-08-20 08:22 | Outpatient (CLI) | payer MEDICARE, SELFPAY ==
--- NOTE | 2024-08-20 08:23 | DI.RAD.S_ITS ---
PROCEDURE: XR CHEST 2V INDICATIONS: cough, hx copd TECHNIQUE: 2 views of the chest were acquired. COMPARISON: None. FINDINGS: Surgical changes and devices: None. Lungs and pleura: Lungs are clear, lung volumes large. No pleural effusions or pneumothorax. Mediastinum: Mediastinal contours are normal. Heart size is normal. Bones and chest wall: No suspicious bony abnormalities. Soft tissues appear unremarkable. IMPRESSION: No acute cardiopulmonary abnormality is seen. Large lung volumes consistent with stated history of COPD. Dictated by: Douglas Pascal M.D. on 08/20/2024 at 10:39 Approved by: Douglas Pascal M.D. on 08/20/2024 at 10:41
== END ==
PROVIDERS: PCP Family Medicine; Referring Provider Physician Assistant; Visit Provider Physician Assistant
DX: J44.9 Chronic obstructive pulmonary disease, unspecified (principal)
CPT/HCPCS: 71046

== ENCOUNTER → 2024-08-27 07:12 | Outpatient (CLI) | payer MEDICARE, SELFPAY ==
--- NOTE | 2024-08-27 07:13 | DI.CT.S_ITS ---
PROCEDURE: CT LUNG LOW DOSE SCREENING INDICATIONS: tobacco abuse greater than 30 years TECHNIQUE: Noncontrast 2.0-2.5 mm thick sections acquired from the pulmonary apices to the posterior costophrenic angles. 7 mm thick axial MIP, and 5 mm coronal and sagittal reformats were then acquired. For radiation dose reduction, the following was used: automated exposure control, adjustment of mA and/or kV according to patient size. COMPARISON: None. FINDINGS: Image quality: Diagnostic. Lower Neck: No enlarged lymph nodes. Thyroid: No thyroid nodules which require sonographic follow up, per consensus guidelines. Axillae: No enlarged lymph nodes. Chest Wall: Unremarkable. Bones: Unremarkable. Lungs and Pleura: No pneumothorax or pleural effusions. 6 millimeter left upper lobe calcified granuloma. Some 3 millimeter ground-glass nodules in the right upper lobe mostly associated with some ground-glass peribronchovascular densities having the appearance of postinfectious or postinflammatory changes. At least 3 discrete ground-glass nodules identified, 1 in the right upper lobe (series 3, image number 66), 1 in the right upper lobe series 3, image number 84, and 1 in the right lung apex which appears partially calcified, series 3, image number 43. No definite suspicious nodules. Heart: Heart size is normal. No pericardial effusion. Coronary arterial calcifications noted. Thoracic Vessels: The aorta and pulmonary arteries demonstrate normal size. Mediastinum and Yesica: No enlarged lymph nodes. Esophagus: No wall thickening. No hiatal hernia. Upper Abdomen: Visualized upper abdomen solid organs and bowel loops appear normal. IMPRESSION: No definite suspicious nodules. Granulomatous disease with some ground-glass nodules as above. LUNG-RADS 2; continued annual screening in 12 months. Clinically Significant Non-pulmonary Findings: Coronary arterial calcifications Dictated by: Jefry Andre M.D. on 08/27/2024 at 10:05 Approved by: Jefry Andre M.D. on 08/27/2024 at 10:13
== END ==
PROVIDERS: PCP Family Medicine; Referring Provider Family Medicine; Visit Provider Family Medicine
DX: Z12.2 Encounter for screening for malignant neoplasm of respiratory organs; Z72.0 Tobacco use; I25.10 Atherosclerotic heart disease of native coronary artery without angina pectoris; R91.8 Other nonspecific abnormal finding of lung field; J98.4 Other disorders of lung
CPT/HCPCS: 71271

== ENCOUNTER → 2024-09-11 09:33 | Outpatient (CLI) | payer MEDICARE, SELFPAY ==
[2024-09-13 07:36] LABS: PSA Free % 5.1 % (.); PSA, Total 3.5 ng/mL (0.0-4.0)
== END ==
PROVIDERS: PCP Family Medicine; Referring Provider Urology; Visit Provider Urology
DX: R97.20 Elevated prostate specific antigen [PSA] (principal)
CPT/HCPCS: 36415; 84153; 84154

== ENCOUNTER → 2024-12-22 15:18 | Outpatient (CLI) | payer MEDICARE, SELFPAY ==
--- NOTE | 2024-12-22 15:20 | DI.RAD.S_ITS ---
PROCEDURE: XR CHEST 2V INDICATIONS: Orthopnea, Dyspnea, A-fib TECHNIQUE: 2 views of the chest were acquired. COMPARISON: [facility], CR, XR CHEST 2V, 08/20/2024, 8:27. FINDINGS: Surgical changes and devices: None. Lungs and pleura: Lungs are clear. No pleural effusions or pneumothorax. Mediastinum: Mediastinal contours are normal. Heart size is normal. Bones and chest wall: No suspicious bony abnormalities. Soft tissues appear unremarkable. IMPRESSION: No acute cardiopulmonary abnormality is seen. Dictated by: To Goode M.D. on 12/23/2024 at 1:56 Approved by: To Goode M.D. on 12/23/2024 at 1:56
[2024-12-22 16:01] LABS: Add Manual Diff / Slide Review NO; Basophils Absolute Auto 100 /uL (0-100); Basophils Percent Auto 1.1 % (0-2); Eosinophils Absolute Auto 200 /uL (0-450); Hematocrit 48.4 % (41-53); Hemoglobin 16.3 g/dL (13.5-17.5); Lymphocytes Absolute Auto 2800 /uL (1100-4500); Lymphocytes Percent Auto 34.9 % (25-40); Mean Corpuscular HGB Conc 33.7 % (30-36); Mean Corpuscular Hemoglobin 32.9 PG (26-34); Mean Corpuscular Volume 97.7 fL (80-100); Monocytes Absolute Auto 1000 /uL (0-900); Monocytes Percent Auto 13.1 % (3-14); Neutrophils Absolute Auto 3900 /uL (1500-7000); Neutrophils Percent Auto 48.9 % (50-75); Platelet Count 220 X10^3/uL (150-400); Red Blood Cell Count 4.95 X10^6/uL (4.5-5.9); Red Cell Distribution Width 14.3 % (11.6-14.8)
[2024-12-22 16:23] LABS: Alanine Aminotransferase 21 IU/L (<50); Albumin 4.5 g/dL (3.5-5.0); Albumin Globulin Ratio 1.5 (1.0-2.8); Alkaline Phosphatase 85 U/L (38-126); Aspartate Aminotransferase 31 IU/L (17-59); BUN Creatinine Ratio 16.9 (6-22); Bilirubin Total 1.2 mg/dL (0.2-1.3); Blood Urea Nitrogen 14 mg/dL (9-20); Calcium 9.7 mg/dL (8.4-10.2); Carbon Dioxide 25 mmol/L (22-32); Chloride 104 mmol/L (98-107); Estimated Glomerular Filt Rate > 60 mL/min (>60); Glucose 94 mg/dL (80-110); HEMOLYSIS < 15 (0-50); Potassium 4.4 mmol/L (3.4-5.1); Sodium 140 mmol/L (137-145); Total Protein 7.5 g/dL (6.3-8.2)
== END ==
PROVIDERS: PCP Family Medicine; Referring Provider Physician Assistant; Visit Provider Physician Assistant
DX: I48.91 Unspecified atrial fibrillation (principal); R06.02 Shortness of breath; J44.9 Chronic obstructive pulmonary disease, unspecified; R06.01 Orthopnea
CPT/HCPCS: 36415; 71046; 80053; 85025

== ENCOUNTER → 2024-12-30 08:41 | Outpatient (CLI) | payer MEDICARE, SELFPAY | PROVIDERS: PCP Family Medicine; Referring Provider Physician Assistant; Visit Provider Physician Assistant | DX: J44.9 Chronic obstructive pulmonary disease, unspecified (principal); R06.02 Shortness of breath; Z87.891 Personal history of nicotine dependence; R94.2 Abnormal results of pulmonary function studies; J43.1 Panlobular emphysema | CPT/HCPCS: 94060; 94729 ==

== ENCOUNTER → 2025-01-19 06:50 | Outpatient (CLI) | payer MEDICARE, SELFPAY ==
--- NOTE | 2025-01-19 06:51 | DI.ECHO.S_ITS ---
[facility] : : [address] : : [place] : : [id number] : : Phone: [phone] Echocardiogram Report + + :Name: MAYA GUERRERO Study Date: 01/19/2025 Height: 73 in : :Hospital ReadingLocation: Weight: 190 lb : : Gender: Male BSA: 2.1 m2 : :: 1955 Age: 69 yrs BP: 134/82 mmHg: :Reason For Study: ATRIAL FIBRILLATION : :Ordering Physician: FABI, : :DEQUAN Goodman Performed By: Va Brown : :Referring: DEQUAN DUNLAP : + + Interpretation Summary 1) Normal left ventricular thickness and size with low normal systolic function (EF 50-55%). 2) Normal right ventricular size and function. 3) There is mild mitral regurgitation. 4) The aortic root is mildly dilated ay 4.4cm. 5) No prior Echo available for comparison. Procedure: A two-dimensional transthoracic echocardiogram with color flow and Doppler was performed. The study quality was technically adequate. The patient had an echocardiogram, but there is no comparison study available. The patient was in atrial fibrillation with heart rates between 50-75 bpm during the exam. Left Ventricle: The left ventricle is normal in size and wall thickness. The ejection fraction is estimated to be 50-55%. There are no focal wall motion abnormalities. Diastolic function could not be accurately assessed due to atrial fibrillation. Right Ventricle: The right ventricle is normal in size and function. Atria: The left atrium is moderately dilated. The right atrium is borderline dilated. There is no Doppler evidence for an interatrial shunt. Mitral Valve: The mitral valve leaflets appear mildly thickened, but open well. There is mild mitral regurgitation. Aortic Valve: The aortic valve is trileaflet. The aortic valve opens well. There is no aortic valve stenosis. There is trace aortic regurgitation. Tricuspid Valve: The tricuspid valve leaflets are thin and pliable. There is mild tricuspid regurgitation. The right ventricular systolic pressure is estimated to be at least 23 mmHg based on an estimated right atrial pressure of 3 mm Hg. Pulmonic Valve: The pulmonic valve leaflets are thin and pliable; valve motion is normal. There is mild pulmonic regurgitation. Great Vessels: The aortic root is mildly dilated. The ascending aorta is mildly enlarged. The IVC is of normal diameter and collapses greater than 50% with a sniff. This suggests a low right atrial pressure of 3 mm Hg. Pericardium/ Pleura There is no pericardial effusion. There is no pleural effusion. MMode/2D Measurements & Calculations LVIDd: 5.0 cm LVOT diam: 2.3 cm LVIDs: 3.4 cm Ao root diam: 4.4 cm FS: 31.6 % asc Aorta Diam: 4.0 cm IVSd: 1.00 cm Ao Arch Diam (Prox Trans): 3.0 cm LVPWd: 0.81 cm LV sandoval. diameter/BSA (cm/m^2): 2.4 LV sys. diameter/BSA (cm/m^2): 1.6 LA A2 area: 23.1 cm2 RA long axis: 5.7 cm LA A4 area: 21.3 cm2 RA area: 21.7 cm2 LA length (vol): 5.8 cm RA vol: 70.1 ml LA vol: 72.4 ml RA : 33.3 ml/m2 LA vol index: 34.4 ml/m2 IVC diam: 1.8 cm RVD1 (basal): 3.5 cm RVD2 (mid): 2.8 cm TAPSE: 1.6 cm Doppler Measurements & Calculations Ao V2 max: 87.3 cm/sec LVOT Max Huber: 79.6 cm/sec Ao V2 mean: 57.8 cm/sec LV V1 max P.5 mmHg Ao max P.1 mmHg LV V1 VTI: 15.0 cm Ao mean P.5 mmHg MATTHEW(I,D): 3.9 cm2 Ao V2 VTI: 16.6 cm MATTHEW(V,D): 3.9 cm2 sev ratio: 0.90 MATTHEW indexed to BSA (cm^2/m^2): 1.9 MV E max huber: 70.0 cm/sec TR max huber: 222.8 cm/sec MV A max huber: 1.5 cm/sec TR max P.9 mmHg MV E/A: 46.2 PA V2 max: 107.7 cm/sec Med Peak E' Huber: 10.1 cm/sec PA V2 mean: 64.7 cm/sec E/E' med: 6.9 PA mean P.0 mmHg Lat Peak E' Huber: 14.0 cm/sec PA pr(Accel): 27.6 mmHg E/E' lat: 5.0 E/e' average: 6.0 MV dec time: 0.17 sec SV(LVOT): 64.8 ml Reading Physician:01:22 PM
== END ==
LOC: ECHO 06:51
PROVIDERS: PCP Family Medicine; Referring Provider Physician Assistant; Visit Provider Physician Assistant
DX: I08.1 Rheumatic disorders of both mitral and tricuspid valves (principal); I48.91 Unspecified atrial fibrillation; I77.810 Thoracic aortic ectasia; I77.89 Other specified disorders of arteries and arterioles; R06.01 Orthopnea; R06.02 Shortness of breath
CPT/HCPCS: 93306

== ENCOUNTER → 2025-02-23 10:06 | Outpatient (CLI) | payer MEDICARE, SELFPAY ==
--- NOTE | 2025-02-23 10:07 | DI.RAD.S_ITS ---
PROCEDURE: XR LUMBAR SPINE 2-3V INDICATIONS: increasing lbp L hip pain TECHNIQUE: 3 views of the lumbar spine were acquired. COMPARISON: None. FINDINGS: Lumbar spine curvature and alignment: Mild leftward curve appreciated. Bones: Minimal chronic wedging of the T10 through L2 vertebral bodies endplate irregularities compatible chronic Scheuermann's disease Disc spaces: Moderate degenerative disc disease T10-11 through L5-S1. Moderate L4-5 and severe L5-S1 degenerative facet disease Soft tissues: No soft tissue swelling, calcification or mass. IMPRESSION: Degeneration Dictated by: Bryce Funez M.D. on 02/24/2025 at 10:24 Approved by: Bryce Funez M.D. on 02/24/2025 at 10:25
== END ==
PROVIDERS: PCP Family Medicine; Referring Provider Family Medicine; Visit Provider Family Medicine
DX: M43.06 Spondylolysis, lumbar region (principal); M48.55XA Collapsed vertebra, not elsewhere classified, thoracolumbar region, initial encounter for fracture; M51.34 Other intervertebral disc degeneration, thoracic region; M51.369 Other intervertebral disc degeneration, lumbar region without mention of lumbar back pain or lower extremity pain; M51.379 Other intervertebral disc degeneration, lumbosacral region without mention of lumbar back pain or lower extremity pain; M25.552 Pain in left hip
CPT/HCPCS: 72100

== ENCOUNTER 2025-02-24 11:38 | Emergency (ER) | payer MEDICARE, SELFPAY ==
[2025-02-24 11:49] VITALS: BP 163/88; PULSE 83; RESP 18; TEMP 36.8; O2SAT 98; BMI 26.4
--- NOTE | 2025-02-24 14:29 | ED.EXTPRO ---
HPI - Extremity Problem <Jeri Briggs PA-C - Last Filed: 02/24/25 18:36> General Chief complaint: Extremity Problem,Nontraumatic Stated complaint: Left sciatica Pain Time Seen by Provider: 02/24/25 12:12 Source: patient Mode of arrival: Wheelchair History of Present Illness HPI Narrative: Mr. Dunn is a pleasant 69-year-old male with a past medical history of low back pain with a history of epidural steroid injections, AFib on Xarelto, COPD presents to the emergency department with his daughter for low back pain radiating down the left leg x1 week. Patient was at the lining [employer] 1 week ago, lying on an uncomfortable table which precipitated his symptoms. He saw his primary care doctor yesterday who ordered a lumbar x-ray and prescribed cyclobenzaprine and tramadol which patient states has not helped with his pain. His position of comfort is bending forward and the pain is exacerbated by standing straight up or lifting the left leg. He denies any fall, trauma, fevers, chills, change in bowel or bladder sensation. No numbness tingling weakness. He is here with his daughter out of concern of the pain because he does not want the pain to cause him to fall. Related Data Previous Rx's ?Medication ?Instructions ?Recorded tamsulosin 0.4 mg capsule 0.4 mg PO BEDTIME #90 caps 08/03/24 omeprazole 20 mg capsule,delayed 20 mg PO BID Acid reflux, 09/04/24 release gastritis #180 caps levalbuterol tartrate 45 2 puff inhalation Q4H PRN 10/26/24 mcg/actuation aerosol inhaler shortness of breath or wheezing #15 grams metoprolol succinate 25 mg 12.5 mg (1/2 x 25 mg) PO DAILY #45 12/22/24 tablet,extended release 24 hr tabs apixaban 5 mg tablet (Eliquis) 5 mg PO BID #60 tabs 12/24/24 rivaroxaban 2.5 mg tablet (Xarelto) 2.5 mg PO BID #60 tabs 12/29/24 trazodone 50 mg tablet 50 mg PO BEDTIME PRN insomnia #90 01/26/25 tabs cyclobenzaprine 10 mg tablet 10 mg PO BEDTIME PRN muscle spasm 02/23/25 #30 tabs tramadol 50 mg tablet 50 mg PO BID PRN pain #30 tabs 02/23/25 diazepam 2 mg tablet (Valium) 2 mg PO TID PRN muscle spasm #10 02/24/25 tabs oxycodone 5 mg tablet 5 mg PO Q6H PRN pain #12 tabs 02/24/25 prednisone 20 mg tablet 40 mg (2 x 20 mg) PO DAILY 5 days 02/24/25 #10 tabs Allergies Allergy/AdvReac Type Severity Reaction Status Date / Time No Known Drug Allergies Allergy Verified 02/24/25 11:49 Review of Systems <Jeri Briggs PA-C - Last Filed: 02/24/25 18:36> Review of Systems ROS Unobtainable: All systems reviewed & are unremarkable except as noted in HPI and below Patient History <Jeri Briggs PA-C - Last Filed: 02/24/25 18:36> Medical History Left hip pain Lumbar spondylolysis Panlobular emphysema COPD exacerbation Benign prostatic hyperplasia with lower urinary tract symptoms Urethral stricture, traumatic Tobacco abuse Family history of prostate cancer Rising PSA level Insomnia Elevated PSA, less than 10 ng/ml Right knee pain Medicare annual wellness visit, subsequent Encounter for wellness examination in adult Varicose veins of right lower extremity Tobacco abuse counseling COPD (chronic obstructive pulmonary disease) Elbow sprain, ulnar collateral ligament Skin abscess Nichols's esophagus Chronic neck pain Segmental and somatic dysfunction of cervical region Somatic dysfunction of rib cage region Segmental and somatic dysfunction of abdomen and other regions Vision disorder Shoulder pain (~2002) Hearing loss (~1999) Reflux esophagitis Surgical History S/P urethral surgery Anesthesia History of knee surgery (~1993) History of bladder surgery (~2018) History of shoulder surgery (~2003) History of open heart surgery (~1967) Social History household members: other Smoking Status: Former smoker alcohol intake: current Smoking Status: Former smoker tobacco type: cigarettes alcohol intake frequency: a few times a week Exam <Jeri Briggs PA-C - Last Filed: 02/24/25 18:36> Narrative Exam Narrative: GENERAL: 69 year old patient appears stated age. Well-developed patient, in no acute distress. HEAD: Atraumatic. Normocephalic. NECK: Trachea midline. Cervical ROM intact. CARDIOVASCULAR: Regular rate and irregular rhythm. RESPIRATORY: ?Nonlabored respirations. ?Speaking in clear, full sentences. ?Clear to auscultation. Breath sounds equal bilaterally. No wheezes, rales, or rhonchi. ? EXTREMITIES: No edema or joint tenderness. Strong palpable DP pulses bilaterally. BACK: Tenderness in left glute/piriformis muscle region. Positive left straight leg raise, negative right straight leg raise. NEURO: AOx3. ?Clear speech. ?Moves all 4 extremities appropriately. Sensation intact to light touch on bilateral upper and lower extremities. SKIN: No rash or erythema of visible areas Initial Vital Signs Initial Vital Signs: Vital Signs Temperature 98.2 F 02/24/25 11:49 Pulse Rate 83 02/24/25 11:49 Respiratory Rate 18 02/24/25 11:49 Blood Pressure 163/88 H 02/24/25 11:49 Pulse Oximetry 98 02/24/25 11:49 Oxygen Delivery Method Room Air 02/24/25 11:49 <Gianna Beltran DO - Last Filed: 02/24/25 19:10> Initial Vital Signs Initial Vital Signs: Vital Signs Temperature 98.2 F 02/24/25 11:49 Pulse Rate 83 02/24/25 11:49 Respiratory Rate 18 02/24/25 11:49 Blood Pressure 163/88 H 02/24/25 11:49 Pulse Oximetry 98 02/24/25 11:49 Oxygen Delivery Method Room Air 02/24/25 11:49 Course <Jeri Briggs PA-C - Last Filed: 02/24/25 18:36> Orders Ordered: Discontinued Medications Acetaminophen (Acetaminophen 325 Mg Tablet) 650 mg PO NOW ONE Stop: 02/24/25 14:45 Last Admin: 02/24/25 14:51 Dose: 650 mg Documented By: LEONARDO Diazepam (Diazepam 2 Mg Tablet) 2 mg PO NOW ONE Stop: 02/24/25 15:58 Last Admin: 02/24/25 16:08 Dose: 2 mg Documented By: LEONARDO Diazepam (Diazepam 2 Mg Tablet) 2 mg PO NOW ONE Stop: 02/24/25 17:06 Last Admin: 02/24/25 17:18 Dose: 2 mg Documented By: LEONARDO Oxycodone HCl (Oxycodone Ir 5 Mg Tablet) 5 mg PO NOW ONE Stop: 02/24/25 14:45 Last Admin: 02/24/25 14:52 Dose: 5 mg Documented By: LEONARDO Oxycodone/Acetaminophen (Oxycodone/Acetaminophen 5/325 Tablet) 1 tab PO NOW ONE Stop: 02/24/25 16:00 Last Admin: 02/24/25 16:07 Dose: 1 tab Documented By: LEONARDO Prednisone (Prednisone 20 Mg Tablet) 40 mg PO NOW ONE Stop: 02/24/25 14:45 Last Admin: 02/24/25 14:51 Dose: 40 mg Documented By: LEONARDO Vital Signs Vital signs: Vital Signs - 8 hr 02/24/25 11:49 02/24/25 17:32 Temperature 98.2 F Pulse Rate 83 80 Respiratory Rate 18 16 Blood Pressure 163/88 H 165/90 H Pulse Oximetry 98 98 Oxygen Delivery Method Room Air Room Air <Gianna Beltran DO - Last Filed: 02/24/25 19:10> Orders Ordered: Discontinued Medications Acetaminophen (Acetaminophen 325 Mg Tablet) 650 mg PO NOW ONE Stop: 02/24/25 14:45 Last Admin: 02/24/25 14:51 Dose: 650 mg Documented By: LEONARDO Diazepam (Diazepam 2 Mg Tablet) 2 mg PO NOW ONE Stop: 02/24/25 15:58 Last Admin: 02/24/25 16:08 Dose: 2 mg Documented By: LEONARDO Diazepam (Diazepam 2 Mg Tablet) 2 mg PO NOW ONE Stop: 02/24/25 17:06 Last Admin: 02/24/25 17:18 Dose: 2 mg Documented By: LEONARDO Oxycodone HCl (Oxycodone Ir 5 Mg Tablet) 5 mg PO NOW ONE Stop: 02/24/25 14:45 Last Admin: 02/24/25 14:52 Dose: 5 mg Documented By: LEONARDO Oxycodone/Acetaminophen (Oxycodone/Acetaminophen 5/325 Tablet) 1 tab PO NOW ONE Stop: 02/24/25 16:00 Last Admin: 02/24/25 16:07 Dose: 1 tab Documented By: LEONARDO Prednisone (Prednisone 20 Mg Tablet) 40 mg PO NOW ONE Stop: 02/24/25 14:45 Last Admin: 02/24/25 14:51 Dose: 40 mg Documented By: LEONARDO Vital Signs Vital signs: Vital Signs - 8 hr 02/24/25 11:49 02/24/25 17:32 Temperature 98.2 F Pulse Rate 83 80 Respiratory Rate 18 16 Blood Pressure 163/88 H 165/90 H Pulse Oximetry 98 98 Oxygen Delivery Method Room Air Room Air [facility] - Extremity (Nontraumatic) <Jeri Briggs PA-C - Last Filed: 02/24/25 18:36> Medical Records Attestation: I reviewed the patient's medical records. [facility] Narrative Medical decision making narrative: 69-year-old male with a past medical history of low back pain with a history of epidural steroid injections, AFib on Xarelto, COPD presents to the emergency department with his daughter for low back pain radiating down the left leg x1 week. Differential diagnosis includes but is not limited to left lumbar radiculopathy, spinal stenosis, sacroiliitis, piriformis syndrome, etc. On exam the patient is in no acute distress, nontoxic appearing but vital signs appropriate. He has positive left leg raise. He is neurovascularly intact, no bowel or bladder dysfunction or trauma. No saddle anesthesia. He saw his PCP yesterday who obtained a lumbar x-ray that reveals degenerative changes. Symptoms not improved with tramadol and cyclobenzaprine. He is on blood thinners, we will need to avoid NSAIDs. He does not have diabetes. We will treat with prednisone, oxycodone, Tylenol. After receiving a total of 10 mg oxycodone, 4 mg Valium, 975 acetaminophen with 40 mg prednisone patient's symptoms are improved but still present. Patient feels comfortable going home, continuing to stretch, use heat therapy, we will prescribe oxycodone, Valium and recommend Tylenol. Advised patient use his walker when he is home. Discussed the risks of using Valium and oxycodone together. 5 day course of prednisone also sent to pharmacy of choice. Advised prompt follow up with PCP and spine for further management. Patient and daughter are agreeable to the plan. Ambulation trial passed in the emergency department. He is stable for discharge home. Discharge Plan Departure Patient Disposition: Home Clinical Impression: Acute left lumbar radiculopathy DDD (degenerative disc disease), lumbar Qualifiers: Disc-related pain type: discogenic back pain and lower extremity pain Qualified Code(s): M51.362 - Other intervertebral disc degeneration, lumbar region with discogenic back pain and lower extremity pain Instructions: DI for Lumbar Radiculopathy Activity Restrictions/Additional Instructions: Dear Mr. Dunn, Thank you for coming to the emergency department. Today you were evaluated for left-sided low back and leg pain. Your x-ray obtained yesterday reveals degenerative changes. You have been treated with oxycodone, Valium, Tylenol, prednisone. I have sent prescriptions for prednisone, oxycodone and Valium to your pharmacy. Please be aware that oxycodone has a strong opioid pain medication and Valium isn't strong muscle relaxer and is important to be very cautious when taking these medications together as they can both cause sedation. I would like you to take Tylenol 650-1000 mg in addition to these medications, do not take more than 3000 mg of Tylenol per day. Please follow up with your primary care doctor and your spine doctor as soon as possible. Return to the emergency department immediately if you develop weakness, loss of control of your bowels or bladder, fevers, numbness, severe pain or any other concerns. Please follow up with your primary care doctor within the next 2-3 days for ER follow-up. (If you do not have a PCP you can call [phone]. ?to schedule an appointment with an [facility] Primary Care Provider) IF YOU DEVELOP ANY NEW OR WORSENING SYMPTOMS, RETURN TO THE ER! Please read the attached instructions, they highlight more specific treatments and interventions for you at home. Thank you for letting me participate in your care, Jeri Briggs PA-C Prescriptions: New prednisone 20 mg tablet 40 mg PO DAILY 5 Days Qty: 10 0RF Rx Instructions: Take with breakfast. diazepam [Valium] 2 mg tablet 2 mg PO TID PRN (Reason: muscle spasm) Qty: 10 0RF oxycodone 5 mg tablet 5 mg PO Q6H PRN (Reason: pain) Qty: 12 0RF No Action tamsulosin 0.4 mg capsule 0.4 mg PO BEDTIME Qty: 90 3RF omeprazole 20 mg capsule,delayed release(DR/EC) 20 mg PO BID Qty: 180 1RF levalbuterol tartrate 45 mcg/actuation HFA aerosol inhaler 2 puff inhalation Q4H PRN (Reason: shortness of breath or wheezing) Qty: 15 4RF Eliquis 5 mg tablet 5 mg PO BID Qty: 60 1RF trazodone 50 mg tablet 50 mg PO BEDTIME PRN (Reason: insomnia) Qty: 90 0RF cyclobenzaprine 10 mg tablet 10 mg PO BEDTIME PRN (Reason: muscle spasm) Qty: 30 1RF tramadol 50 mg tablet 50 mg PO BID PRN (Reason: pain) Qty: 30 1RF metoprolol succinate 25 mg tablet extended release 24 hr 12.5 mg PO DAILY Qty: 45 1RF Xarelto 2.5 mg tablet 2.5 mg PO BID Qty: 60 5RF Referrals: Atul Andujar DO [Primary Care Provider, Family Practice] Stand Alone Forms: Patient Portal/API ED Sign-out <Gianna Beltran DO - Last Filed: 02/24/25 19:10> Cosign ED Attending Karthikeyan Attestation: I was immediately available in the department for consultation.
[2025-02-24] MEDS: predniSONE 20 MG TABLET 40 MG PO (14:51)
[2025-02-24] MEDS: ACETAMINOPHEN 325 MG TABLET 650 MG PO (14:51)
[2025-02-24] MEDS: OXYCODONE IR 5 MG TABLET PO (14:52)
[2025-02-24] MEDS: OXYCODONE/ACETAMINOPHEN 5/325 TABLET 1 TAB PO (16:07)
[2025-02-24] MEDS: diazePAM 2 MG TABLET PO ×2 (16:08→17:18)
[2025-02-24 17:32] VITALS: BP 165/90; PULSE 80; RESP 16; O2SAT 98
== END 2025-02-24 17:33 | disposition home or self-care (01) ==
PROVIDERS: Emergency Provider Physician Assistant; PCP Family Medicine
DX: M54.16 Radiculopathy, lumbar region (principal); M51.362 Other intervertebral disc degeneration, lumbar region with discogenic back pain and lower extremity pain
CPT/HCPCS: 99283

== ENCOUNTER → 2025-03-29 12:38 | Outpatient (CLI) | payer MEDICARE, SELFPAY ==
[2025-03-31 06:36] LABS: PSA, Total 3.5 ng/mL (0.0-4.0)
== END ==
PROVIDERS: PCP Urology; Referring Provider Urology; Visit Provider Urology
DX: R97.20 Elevated prostate specific antigen [PSA] (principal); Z80.42 Family history of malignant neoplasm of prostate
CPT/HCPCS: 36415; 84153; 84154

== ENCOUNTER → 2025-04-10 09:10 | Outpatient (CLI) | payer MEDICARE, SELFPAY ==
--- NOTE | 2025-04-10 09:12 | DI.MRI.S_ITS ---
PROCEDURE: MR LUMBAR SPINE WO CON INDICATIONS: pain radiating left buttock to left lower limb TECHNIQUE: Noncontrast sagittal T1 spin echo and T2 fast echo, sagittal STIR, and T2 fast spin echo through the lumbar spine. In cases with scoliosis, additional coronal T2 fast spin echo may be performed. COMPARISON: None. FINDINGS: Image quality: Excellent. Multilevel degenerative changes with central stenoses and neural foraminal narrowing as discussed below. Alignment and Curvature: Mild levoscoliosis convex to the left with apex at approximately L2-3. Bone Marrow: Diffuse heterogeneous bone marrow most likely related to degenerative endplate Modic type changes throughout the lumbar spine. No gross MR evidence of fracture or osseous lesion. Spinal Cord: Conus medullaris terminates at the L1 level. Visualized cord demonstrates normal signal and size. T12-L1: Moderate diffuse circumferential disc bulge which flattens the anterior thecal sac, mild facet osseous and ligamentous hypertrophic changes with mild central stenosis. Ilbz-fu-akksbjkj bilateral neural foraminal narrowing right greater than left. L1-L2: Moderate diffuse circumferential disc bulge which flattens the anterior thecal sac, mild facet osseous and ligamentous hypertrophic changes without significant central stenosis. Rgzc-kl-triulrbk bilateral neural foraminal narrowing right greater than left. L2-L3: Moderate diffuse circumferential disc bulge which flattens the anterior thecal sac, moderate facet osseous and ligamentous hypertrophic changes with moderate central stenosis. Jvie-go-pbezlccm bilateral neural foraminal narrowing. L3-L4: Yfpowwfz-lv-oyvoiq diffuse circumferential disc bulge which flattens the anterior thecal sac, moderate to severe facet osseous and ligamentous hypertrophic changes with moderate to severe central stenosis. Moderate to severe bilateral neural foraminal narrowing. L4-L5: Aczvshev-hs-ylhkpe diffuse circumferential disc bulge which indents the anterior thecal sac, moderate to severe facet osseous and ligamentous hypertrophic changes with severe central stenosis and severe bilateral neural foraminal narrowing. L5-S1: Increased T2 weighted signal/bone edema in the bilateral L5 pedicles left greater than right which is nonspecific may be related to nondisplaced fracture, spondylolysis. Mild surrounding soft tissue edema and edema in the left greater than right neural foramina. Moderate diffuse circumferential disc bulge and moderate facet osseous and ligamentous hypertrophic changes with possible left far lateral disc protrusion versus related to disc-osteophyte and severe bilateral neural foraminal narrowing left greater than right. No significant central stenosis. IMPRESSION: Severe degenerative changes as discussed above most notably at L3- 4, L4-5 and L5-S1. Bone edema in the bilateral L5 pedicles left greater than right suspicious for posttraumatic change, nondisplaced fracture or chronic changes. Possible far left lateral L5-S1 disc protrusion versus disc-osteophyte. Dictated by: Mayo Moser M.D. on 04/12/2025 at 12:20 Approved by: Mayo Moser M.D. on 04/12/2025 at 12:35
== END ==
PROVIDERS: PCP Family Medicine; Referring Provider Physical Medicine & Rehabilitation; Visit Provider Physical Medicine & Rehabilitation
DX: M47.26 Other spondylosis with radiculopathy, lumbar region (principal); M47.27 Other spondylosis with radiculopathy, lumbosacral region; M89.9 Disorder of bone, unspecified
CPT/HCPCS: 72148

== ENCOUNTER 2025-05-26 10:37 | Outpatient (CLI) | payer MEDICARE, SELFPAY ==
[2025-05-26 10:50] VITALS: BP 136/100; PULSE 70; RESP 18; TEMP 36.5; O2SAT 95
[2025-05-26 11:14] VITALS: BP 172/90; PULSE 71; RESP 16; O2SAT 100
[2025-05-26] MEDS: LIDOCAINE 1% (PF) 5 ML INJ (11:18)
[2025-05-26 11:22] VITALS: BP 142/77; PULSE 85; RESP 18; O2SAT 97
--- NOTE | 2025-05-26 12:40 | PM.PROC.IR.1 ---
Date/Time/Diagnoses Date of procedure: 04/21/25 Time of procedure: 11:00 Pre-procedure diagnosis: Lumbosacral radiculopathy Post-procedure diagnosis: same Procedure Notes Procedure: Interlaminar epidural steroid injection L5-S1 Indications: Lumbosacral radiculopathy Physician: Guzman Schumacher Total sedation minutes: 0 Complications: none Procedure in detail & Post-procedure care: Patient is here for the planned procedure today as noted. No significant change since the last office visit. For additional clinical scenario please see those office notes. Focused exam: Vital signs reviewed as charted on intake. Gen: Well developed. No acute distress. CV: RRR, no M/R/G Chest: Non-labored breathing, CTAB. Psych: Alert and well-oriented. Mood/Affect: normal. Patient suitable for the planned procedure today: Yes === The following procedure was performed in the office today: Lumbar Epidural Steroid Injection with fluoroscopic guidance - Interlaminar approach (42749) Levels Treated: [L5-S1] Approach: interlaminar Soft tissue: [1% lidocaine 2 mL] Test dose: [1% lidocaine 1 mL] Injectate: 0.75 mL of Depo-Medrol (80mg/mL) in 1.25 mL 1% lidocaine and 1 mL normal saline Fluoroscopy Agent: [Omnipaque-300 1.5 mL] Notes: Note he is on Eliquis, held for the procedure, last dose 05/23/2025Saturday evening. May resume 6 hours postprocedure. Left paramedian approach. 3.5 in 20 gauge Touhy needle utilized and adequate. Preprocedure pain 7/10, postprocedure pain 2/10. Procedure: After discussing the risks, benefits, and alternatives to the procedure, the patient expressed understanding and wished to proceed. The risks include but are not limited to infection, allergic reaction, nerve damage, stroke, paralysis, epidural hematoma, syncope, headache, respiratory or cardiac arrest, spinal cord injury, and scar formation. Informed consent was obtained and all patient questions were answered. The patient was brought to the procedure suite and placed in the prone position. A pre-procedural pause was conducted to verify: correct patient identity, procedure to be performed and as applicable, correct side and site, correct patient position, and any special requirements. Using a paramedian approach from the side noted above, the region overlying the target was localized under fluoroscopic visualization and the soft tissues overlying this structure were infiltrated with the anesthetic listed above. With fluoroscopic guidance, a #20 gauge Tuohy needle (unless otherwise noted) was inserted into the epidural space using a paramedian approach. The epidural space was localized utilizing intermittent multiplanar fluoroscopic guidance and loss of resistance technique. After negative aspiration, the contrast noted above was injected into the epidural space and the flow of contrast was observed, confirming epidural spread without evidence of intravascular or intrathecal spread. Multi-planar radiographs were obtained for documentation purposes. A test dose of lidocaine was injected into the above noted epidural space, and the patient was observed for 30-60 seconds. No sensory deficits were reported and normal lower extremity motor function was noted. Subsequently, the injectate as noted above was administered into the level noted above. The patient tolerated the procedure well and was discharged after an appropriate period of observation. If there are any complications, the patient was instructed to call us. The patient is to follow-up with the requesting provider in 2-3 weeks. This note was compiled using voice recognition software and therefore may contain typos. Please contact the author with any questions or concerns.
== END 2025-05-26 11:26 | disposition home or self-care (01) ==
LOC: RAD 10:37
PROVIDERS: PCP Family Medicine; Referring Provider Physical Medicine & Rehabilitation; Visit Provider Physical Medicine & Rehabilitation
DX: M54.17 Radiculopathy, lumbosacral region (principal)
CPT/HCPCS: 62323; J1010

== ENCOUNTER 2025-08-04 08:40 | Outpatient (CLI) | payer MEDICARE, SELFPAY ==
[2025-08-04 09:25] VITALS: BP 151/77; PULSE 88; RESP 16; TEMP 36.7; O2SAT 97
[2025-08-04 09:58] VITALS: BP 159/87; PULSE 69; RESP 18; O2SAT 100
[2025-08-04 10:04] VITALS: BP 164/90; PULSE 69; RESP 16; O2SAT 99
[2025-08-04] MEDS: LIDOCAINE 2% INJ MDV 20ML 10 ML INJ (10:06)
[2025-08-04 10:19] VITALS: BP 162/82; PULSE 77; RESP 16; O2SAT 96
--- NOTE | 2025-08-04 12:39 | PM.PROC.IR.1 ---
Date/Time/Diagnoses Date of procedure: 08/04/25 Time of procedure: 10:00 Pre-procedure diagnosis: Low back pain, lumbar spondylosis Post-procedure diagnosis: same Procedure Notes Procedure: Medial branch block, left L4-5 and L5-S1 facet joint nerves Indications: Low back pain, lumbar spondylosis Physician: Guzman Schumacher Total sedation minutes: 0 Complications: none Procedure in detail & Post-procedure care: Patient is here for the planned procedure today as noted. No significant change since the last office visit. For additional clinical scenario please see those office notes. Focused exam: Vital signs reviewed as charted on intake. Gen: Well developed. No acute distress. CV: RRR, no M/R/G Chest: Non-labored breathing, CTAB. Psych: Alert and well-oriented. Mood/Affect: normal. Patient suitable for the planned procedure today: Yes === The following procedure was performed today: Lumbar Facet Joint Nerve Block (medial branch block) with fluoroscopic guidance ([id number]) Levels Treated: Left L4-5 and L5-S1 facet joint nerves (left L3 and L4 medial branches and L5 dorsal ramus) Approach: posterior Soft tissue: 1.5 mL 2% lidocaine Injectate: 0.8 mL 2% lidocaine at each level Fluoroscopy Agent: Isovue 300-M 0.8 mL Notes: Note he is on Eliquis. Associated increased bleeding risks discussed and he would like to proceed. 3.5 in 22 gauge spinal needle utilized and adequate. Preprocedure pain 5/10, postprocedure pain 0/10. Pain diary provided and he will bring it to follow-up. Procedure: After discussing the risks, benefits, and alternatives to the procedure, the patient expressed understanding and wished to proceed. The risks include but are not limited to infection, allergic reaction, nerve damage, stroke, paralysis, epidural hematoma, syncope, headache, respiratory or cardiac arrest, spinal cord injury, and scar formation. Informed consent was obtained and all patient questions were answered. The patient was brought to the procedure suite and placed in the prone position. A pre-procedural pause was conducted to verify: correct patient identity, procedure to be performed and as applicable, correct side and site, correct patient position, and any special requirements. Using fluoroscopy, the junction of the transverse process and superior articular process of the target levels were identified. For the L5 dorsal ramus (if targeted), the junction of the superior articular process of the sacrum and the ala was identified. The skin was sterilely prepped and draped in the usual fashion. The skin and subcutaneous tissue were anesthetized with lidocaine. Then using fluoroscopic guidance with multiplanar views, a 22 gauge spinal needle was advanced to each target. After contacting the periosteum and after negative aspiration, 0.2 cc of contrast was injected at each site. Spread of contrast approximated the region of the medial branches/dorsal ramus and there was no evidence of intravascular uptake. The injectate noted above was then injected at each site and the needles were removed. The procedure was repeated for each target level noted above. Multiplanar images were obtained and saved. The patient tolerated the procedure well and was discharged after an appropriate period of observation. If there are any complications, the patient was instructed to call us. The patient is to follow-up with the requesting provider in 1-2 weeks. The patient was instructed to keep a pain diary and bring the results to the follow up appointment. This note was compiled using voice recognition software and therefore may contain typos. Please contact the author with any questions or concerns.
--- OUTSIDE RECORDS SUMMARY | 2025-08-06 13:46 | XMS_ITS | Clinical Summary ---
Author Organization [facility] Address [address] [place] [address] Care Team Providers Care Clinical Education Manager Name Role Phone Atul Andujar MD Primary Care Provider [phone] Allergies Active Allergy Reactions Criticality Noted Date Comments No Known Allergies 01/11/2016 Medications traZODone (DESYREL) 50 mg tablet Take 1 tablet (50 mg total) by mouth nightly as needed for sleep 12/03/2024 Active tamsulosin (FLOMAX) 0.4 mg capsule Take 1 capsule (0.4 mg total) by mouth nightly Active omeprazole (PriLOSEC) 20 mg capsule Take 1 capsule (20 mg total) by mouth 2 (two) times a day Active levalbuterol (XOPENEX HFA) 45 mcg/actuation inhaler Inhale 1-2 puffs every 4 (four) hours as needed for wheezing Active apixaban (ELIQUIS) 5 mg tablet Take 1 tablet (5 mg total) by mouth 2 (two) times a day 180 tablet 3 02/17/2025 Active cyclobenzaprine (FLEXERIL) 10 mg tablet 03/23/2025 Active diazePAM (VALIUM) 2 mg tablet 03/11/2025 Active gabapentin (NEURONTIN) 300 mg capsule 04/15/2025 Active oxyCODONE (ROXICODONE) 5 mg immediate release tablet 04/20/2025 Acti ve predniSONE (DELTASONE) 20 mg tablet take 2 tablets by mouth once daily for 5 days 02/24/2025 Active traMADoL (ULTRAM) 50 mg tablet Take 1 tablet (50 mg total) by mouth 2 (two) times a day as needed 02/23/2025 Active metoprolol succinate XL (TOPROL-XL) 25 mg 24 hr tablet Take 0.5 tablets (12.5 mg total) by mouth daily 45 tablet 3 04/22/2025 Active Active Problems Problem Noted Date Diagnosed Date Solitary kidney, congenital 10/14/2018 History of urethral stricture 10/14/2018 Family History Medical History Relation Comments Heart disease Father Cancer Mother Relation Status Comments Father Mother Social History Tobacco Use Types Packs/Day Years Used Date Smoking Tobacco: Former Cigarettes 1.5 45 Smokeless Tobacco: Never Comments:december 21 2018 Alcohol Use Standard Drinks/Week Comments Yes 2 (1 standard drink = 0.6 oz pur e alcohol) Weekends Sex and Gender Information Value Date Recorded Sex Assigned at Not on file Legal Sex Male 7:13 PM PDT Gender Identity Not on file Sexual Orientation Not on file Last Filed Vital Signs Vital Sign Reading Time Taken Comments Blood Pressure 136/60 04/22/2025 10:01 AM PDT Pulse 108 04/22/2025 10:01 AM PDT Temperature 36.4 C (97.5 F) 03/25/2025 8:00 AM PDT Respiratory Rate 19 03/25/2025 8:20 AM PDT Oxygen Saturation 95% 03/25/2025 8:20 AM PDT Inhaled Oxygen Concentration - - Weight 87.1 kg (192 lb) 04/22/2025 10:01 AM PDT Height 185.4 cm (6' 1) 04/22/2025 10:01 AM PDT Body Mass Index 25.33 04/22/2025 10:01 AM PDT Plan of Treatment Health Maintenance Due Date Last Done Comments Medicare Annual Wellness (AWV) 1955 Depression Screening (PHQ-2) 1967 DTaP,Tdap,and Td Vaccines (1 - Tdap) 1974 Colorectal Cancer Screening (Colonoscopy) 2000 Colorectal Cancer Screening (FOBT) 2000 Colorectal Cancer Screening (Fecal DNA) 2000 Colorectal Cancer Screening Combined 2000 RSV Patients Over 60 years OR qualifying ( Patients) (1 - Risk 60-74 years 1-dose series) 2015 PSA Screening Discussion 10/14/2019 10/14/2018 Fall Risk Screening 2020 [facility] Pneumococcal Adult 50+ (2 of 2 - PCV) 06/28/2021 06/28/2020 COVID-19 Vaccine ( season) 2025 01/31/2022, 08/18/2021, 12/22/2020 Influenza Vaccine (#1) 2025 06/28/2020 [facility] Pneumococcal Combined Age 0-49 Discontinued 06/28/2020 Zoster Vaccines Completed 04/14/2024, 12/12/2023 HPV Vaccines Aged Out No longer eligi ble based on patient's age to complete this topic Hepatitis A Vaccines Aged Out No long er eligible based on patient's age to complete this topic Hepatitis B Vaccines Aged Out No long er eligible based on patient's age to complete this topic IPV Vaccines Aged Out No longer eligi ble based on patient's age to complete this topic MMR Vaccines Aged Out No longer eligi ble based on patient's age to complete this topic Procedures Procedure Name Priority Date/Time Associated Diagnosis Comments PROSTATE-SPECIFIC AG Routine 10/14/2018 10:25 AM [facility] Prostate cancer screening from Last 3 Months or Most Recently Relevant to Health Maintenance Results * Prostate-Specific Ag (10/14/2018 10:25 AM [facility]) PSA, Serum/Plasma 2.64 <=4.00 ng/mL 10/15/2018 11:06 AM [facility] Blood specimen (specimen) Venous blood / Unknown Venipuncture / Unknown 10/14/2018 10:25 AM PST 10/14/2018 10:25 AM [facility] Nuria Tinajero MD LAB BLOOD ORDERABLES Final Resu lt [facility] [address] [place] [address], from Last 3 Months or Most Recently Relevant to Health Maintenance Insurance [employer] H[employer] Advance Directives * Full Code (Latest Code Status on File) Date Activated Date Inactivated Comments 03/25/2025 6:48 AM 03/26/2025 2:34 AM Question Answer Comments Discussed the code status with patient and/or fa mehrdad: Yes Care Teams Clinical Education Manager Relationship Specialty Start Date End Date Atul Andujar MD [address] [address] PCP - General Family Medicine 01/04/25
--- OUTSIDE RECORDS SUMMARY | 2025-08-06 13:46 | XMS_ITS | Clinical Summary ---
Author Organization [facility] Address [address] [place] [address] Care Team Providers Care Parts Technician Name Role Phone Pcp, None Primary Care Provider Unavailabl e Allergies No known active allergies Medications ERYTHROMYCIN OP Place to EYE(S). Active SULFAMETHOXAZOLE -TRIMETHOPRIM OR Take by mouth. Active metroNIDAZOLE (FLAGYL OR) Take by mouth. 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 07/23/2019 Social History Tobacco Use Types Packs/Day Years Used Date Smoking Tobacco: Former Cigarettes Smokeless Tobacco: Former Sex and Gender Information Value Date Recorded Sex Assigned at Not on file Legal Sex Male 3:44 AM PST Gender Identity Not on file Sexual Orientation Not on file Last Filed Vital Signs Vital Sign Reading Time Taken Comments Blood Pressure 164/94 05/26/2020 10:26 AM PDT 166/99,no headache and dizziness Pulse 66 05/26/2020 10:26 AM PDT Temperature 36.6 C (97.9 F) 05/26/2020 10:26 AM PDT Respiratory Rate 18 05/26/2020 10:2 6 AM PDT Oxygen Saturation - - Inhaled Oxygen Concentration - - Weight 83.5 kg (184 lb) 05/26/2020 10:2 6 AM PDT Height 185.4 cm (6' 1) 05/26/2020 10:2 6 AM PDT Body Mass Index 24.28 05/26/2020 10:26 AM PDT Plan of Treatment Not on file Insurance [facility] Care Teams Parts Technician Relationship Specialty Start Date End Date Pcp, None Identifies patients without a PCP or unassigned PCP - General 11/20/18
== END 2025-08-04 10:20 | disposition home or self-care (01) ==
LOC: RAD 08:41
PROVIDERS: PCP Family Medicine; Referring Provider Physical Medicine & Rehabilitation; Visit Provider Physical Medicine & Rehabilitation
DX: M47.816 Spondylosis without myelopathy or radiculopathy, lumbar region (principal); M47.817 Spondylosis without myelopathy or radiculopathy, lumbosacral region; M43.06 Spondylolysis, lumbar region
CPT/HCPCS: 64493; 64494

== ENCOUNTER → 2025-09-06 09:19 | Outpatient (CLI) | payer MEDICARE, SELFPAY ==
[2025-09-07 07:36] LABS: PSA, Total 4.7 ng/mL (0.0-4.0)
== END ==
PROVIDERS: PCP Family Medicine; Referring Provider Family Medicine; Visit Provider Urology
DX: R97.20 Elevated prostate specific antigen [PSA] (principal)
CPT/HCPCS: 36415; 84153; 84154